=== PATIENT | male | born 1945 | race Caucasian/White ===

== ENCOUNTER 2018-04-18 10:12 | Day surgery (SDC) | payer MEDICARE, BC ==
[~2018-04-18] VITALS: Ht 188 cm; Wt 106.7 kg
[~2018-04-18 10:12] MED LIST: ACYC200 PO; ACYC400 PO; Aspir 8181 MG PO; CARV6.25 PO; CYCL10 PO; DIPH50 PO; ELIQUIS5 MG PO; LEVO750 PO; LOVA40; Lopressor 25 mg25 MG PT; MULTI VITAMIN1 EACH PO; NEBI10 PO; PSEUDOEPHEDRINE30 MG PO; XARELTO10 MG PO
--- NOTE | 2018-04-18 12:28 | NUR ---
04/18/18 Stephanie8 Andrez Truong PATIENT VSS, TOLERATING PO FLUIDS WELL, DENIES PAIN & N/V AT THIS TIME. DISCHARGE INSTRUCTIONS REVIEWED WITH PATIENT AND HIS GIRLFRIEND, NO QUETIONS. NURSE ASSIST PATIENT TO HIS RIDE HOME.
== END 2018-04-18 12:15 | disposition home or self-care (01) ==
LOC: ORSCSDS 10:12
PROVIDERS: Surgery
PROC: 0DBK8ZX Excision of Ascending Colon, Via Natural or Artificial Opening Endoscopic, Diagnostic (ICD-10-PCS; principal; 2018-04-18 11:30)
DX: K92.1 Melena (principal); D12.2 Benign neoplasm of ascending colon; K57.30 Diverticulosis of large intestine without perforation or abscess without bleeding; I48.91 Unspecified atrial fibrillation; I10 Essential (primary) hypertension; K64.8 Other hemorrhoids; E78.5 Hyperlipidemia, unspecified; E66.9 Obesity, unspecified; Z68.31 Body mass index [BMI] 31.0-31.9, adult; Z79.82 Long term (current) use of aspirin; Z79.899 Other long term (current) drug therapy
CPT/HCPCS: 88305; J7120

== ENCOUNTER 2021-07-04 20:03 | Observation (INO) | payer MEDICARE, BC ==
[~2021-07-04] VITALS: Ht 188 cm; Wt 114.0 kg
[~2021-07-04 20:03] MED LIST changes: +CEPH500 PO; +METO25ER PO
[2021-07-04 20:49] LABS: Albumin, Blood 3.4 g/dL (3.4-5.0); Albumin/Globulin Ratio 0.9 (0.8-1.8); Bilirubin, Total 2.5 mg/dL (0.1-1.0); Bun/Creatinine Ratio 19.5 (12.0-20.0); Calcium, Blood 8.1 mg/dL (8.5-10.1); Creatinine, Blood 0.82 mg/dL (0.60-1.20); Globulin, Blood 3.7 g/dL (2.2-4.0); Magnesium, Blood 1.9 mg/dL (1.6-2.4); Potassium, Blood 3.7 mmol/L (3.5-5.5); Total Protein, Blood 7.1 g/dL (6.4-8.2)
[2021-07-04 21:03] LABS: Hemoglobin 8.6 g/dL (13.5-17.5); Mean Corpuscular HGB 34.4 pg (26.0-34.0); Mean Corpuscular HGB Conc 35.8 g/dL (31.5-36.5); Mean Corpuscular Volume 96 fL (80-100); Mean Platelet Volume 9.5 fL (9.1-12.4); NRBC ABSOLUTE 0.07 K/mm3 (0.00-0.02); NRBC Auto 0.5 /100 WBC (0.0-0.2); Platelet Count 427 K/mm3 (150-400); RDW Coefficient Variation 19.6 % (11.7-14.2); RDW Standard Deviation 55.8 fL (35.1-46.3); White Blood Cell Count 14.87 K/mm3 (4.00-11.30)
[2021-07-04 21:34] LABS: BAND PERCENT MAN 1 % (0-8); BASOPHILS ABSOLUTE MAN 0.14 K/mm3 (0.00-0.23); BASOPHILS PERCENT MAN 1 % (0-2); EOSINOPHILS ABSOLUTE MAN 2.97 K/mm3 (0.00-0.68); EOSINOPHILS PERCENT MAN 20 % (0-6); LYMPHOCYTES ABSOLUTE MAN 3.27 K/mm3 (0.84-5.20); LYMPHOCYTES PERCENT MAN 22 % (21-46); MONOCYTES ABSOLUTE MAN 2.23 K/mm3 (0.16-1.47); MONOCYTES PERCENT MAN 15 % (4-13); MYELOCYTE ABSOLUTE MAN 0.14 K/mm3 (0.00-0.00); MYELOCYTE PERCENT MAN 1 % (0-0); NEUTROPHILS ABSOLUTE MAN 6.09 K/mm3 (1.96-9.15); SEG NEUTROPHILS PERCENT MAN 40 % (41-73); TOTAL CELLS COUNTED 100
[2021-07-04] MEDS ORDERED: METO50ER PO (22:14)
[2021-07-04] MEDS ORDERED: ACYCLOVIR400 MG PO (22:15)
[2021-07-04] MEDS ORDERED: HYDCHL25 PO (22:15)
[2021-07-04] MEDS ORDERED: VITAMIN B-122000 MC1 PO (22:16)
[2021-07-04] MEDS ORDERED: C COMPLEX1000 M1 PO (22:16)
[2021-07-04 23:08] LABS: Source, Urine Clean Catch
[2021-07-04 23:19] LABS: Bilirubin, Urine Neg (Neg); Blood, Urine Neg (Neg); Glucose Qualitative, Urine Neg (Neg); Ketones, Urine Neg (Neg); Leukocyte Esterase, Urine Neg (Neg); Nitrite, Urine Neg (Neg); Protein, Urine Neg (Neg); Urobilinogen, Urine 1+ (Normal)
[2021-07-04 23:21] LABS: Appearance, Urine Clear (Clear); Color, Urine Yellow (P-Yellow)
--- NOTE | 2021-07-04 23:30 | NUR ---
ADMISSION REPORT RECIEVED FROM ER NURSE. PATIENT BROUGHT TO PCU 6 AND SLID OVER TO PCU BED WITH ASSISTANCE OF STAFF. ALERT AND ORIENTED, ANSWERING ALL QUESTIONS APROPRIATELY. CARDIZEM GTT INFUSING PER EMAR. TELE READING AFIB 130s, ALL OTHER VITALS STABLE. PATIENT ON RA WITH O2 SAT >90%. PATIENT DENIES CHEST PAIN OR PRESSURE AT THIS TIME. RN AT BEDSIDE ATTEMPTING 2ND IV SITE. PATIENT ORIENTED TO ROOM AND CALL LIGHT SYSTEM. BED IN LOW POSITION.
[2021-07-04 23:34] LABS: Hematocrit 21.4 % (37.0-53.0)
[2021-07-04 23:48] LABS: Hemoglobin 8.2 g/dL (13.5-17.5)
--- NOTE | 2021-07-05 01:30 | NUR ---
UPDATE CALL PLACED TO HOSPITALIST TO CLARIFY ORDERS. PATIENT CONVERTED TO SINUS RHYTHM AT 0037. PER HOSPITALIST, CONTINUE CARDIZEM GTT FOR 2 HOURS AND GIVE PO METOPROLOL. IV POTASSIUM SWITCHED TO PO. SEE UPDATED ORDERS/EMAR.
--- NOTE | 2021-07-05 05:45 | NUR ---
SHIFT SUMMARY PATIENT ALERT AND ORIENTED x4, PLEASANT AND COOPERATIVE WITH CARE. ABLE TO MAKE NEEDS KNOWN TO STAFF, USES CALL LIGHT APPROPRIATELY. VSS. PATIENT CONVERTED TO SR AT 36, CARDIZEM GTT ON STANDBY SINCE 324, SEE PREVIOUS NOTES. PATIENT DENIES CHEST PAIN OR SOB SINCE ADMISSION. MEDICATED PER EMAR FOR HEADACHE/NAUSEA. USING URINAL AT BEDSIDE INDEPENDENTLY. NO SIGNIFICANT CHANGES SINCE PREVIOUS NOTES. WILL REPORT TO DAY SHIFT RN.
[2021-07-05 06:08] LABS: Albumin, Blood 3.2 g/dL (3.4-5.0); Albumin/Globulin Ratio 0.9 (0.8-1.8); Bilirubin, Total 2.1 mg/dL (0.1-1.0); Bun/Creatinine Ratio 21.8 (12.0-20.0); Calcium, Blood 8.1 mg/dL (8.5-10.1); Creatinine, Blood 0.73 mg/dL (0.60-1.20); Globulin, Blood 3.4 g/dL (2.2-4.0); Potassium, Blood 4.2 mmol/L (3.5-5.5); Total Protein, Blood 6.6 g/dL (6.4-8.2)
[2021-07-05 06:30] LABS: BASOPHILS ABSOLUTE AUTO 0.16 K/mm3 (0.00-0.23); BASOPHILS PERCENT AUTO 1 % (0-2); EOSINOPHILS ABSOLUTE AUTO 2.08 K/mm3 (0.00-0.68); EOSINOPHILS PERCENT AUTO 16 % (0-6); Hematocrit 20.5 % (37.0-53.0); Hemoglobin 7.4 g/dL (13.5-17.5); IMMATURE GRAN ABSOLUTE AUTO 0.14 K/mm3 (0.00-0.10); IMMATURE GRAN PERCENT AUTO 1 % (0-1); LYMPHOCYTES ABSOLUTE AUTO 3.45 K/mm3 (0.84-5.20); LYMPHOCYTES PERCENT AUTO 27 % (21-46); MONOCYTES ABSOLUTE AUTO 1.42 K/mm3 (0.16-1.47); MONOCYTES PERCENT AUTO 11 % (4-13); Mean Corpuscular HGB 35.4 pg (26.0-34.0); Mean Corpuscular HGB Conc 36.1 g/dL (31.5-36.5); Mean Corpuscular Volume 98 fL (80-100); Mean Platelet Volume 9.4 fL (9.1-12.4); NEUTROPHILS ABSOLUTE AUTO 5.53 K/mm3 (1.96-9.15); NEUTROPHILS PERCENT AUTO 43 % (41-73); NRBC ABSOLUTE 0.06 K/mm3 (0.00-0.02); NRBC Auto 0.5 /100 WBC (0.0-0.2); Platelet Count 352 K/mm3 (150-400); RDW Coefficient Variation 21.4 % (11.7-14.2); Red Blood Cell Count 2.09 M/mm3 (4.30-5.90); White Blood Cell Count 12.78 K/mm3 (4.00-11.30)
[2021-07-05] MEDS ORDERED: DECADRON6 M1 PO (12:06)
[2021-07-05 12:25] LABS: Hematocrit 20.9 % (37.0-53.0); Hemoglobin 7.8 g/dL (13.5-17.5)
--- NOTE | 2021-07-05 13:10 | NUR ---
DISCHARGE NOTE PT REMAINED ALERT AND ORIENTED X 4, VITAL SIGNS STABLE UPON DISCHARGE. THIS NURSE WENT OVER DISCHARGE INSTRUCTIONS INCLUDING THE NEED TO MAKE FOLLOW UP APPOINTMENT WITH DR. FOWLER, NEW MEDICATION INSTRUCTIONS, AND EDUCATION REGARDING DIAGNOSIS, PT SIGNIFICANT OTHER SRAVANTHISANJUANA WAS ALSO IN ROOM DURING DISCHARGE. PT LEFT PCU WITH ALL OF PT BELONGINGS AT APPROX. 1258 VIA WHEELCHAIR AND WAS ESCORTED BY THIS NURSE. HE WAS PICKED UP BY YESIKA AT ER ENTRANCE. PT WAS STABLE. IV IN BOTH LEFT AND RIGHT AC REMOVED BY THIS NURSE.
== END 2021-07-05 13:00 | disposition home or self-care (01) ==
LOC: ER 20:03 → PCU 20:04
PROVIDERS: Emergency Medicine; ADMIT Internal Medicine
DX: I48.91 Unspecified atrial fibrillation (principal); I10 Essential (primary) hypertension; E78.5 Hyperlipidemia, unspecified; Z88.1 Allergy status to other antibiotic agents; Z88.8 Allergy status to other drugs, medicaments and biological substances; E87.6 Hypokalemia; D64.9 Anemia, unspecified; D59.9 Acquired hemolytic anemia, unspecified; R00.0 Tachycardia, unspecified; I49.1 Atrial premature depolarization; I47.1 Supraventricular tachycardia
CPT/HCPCS: 36415; 71045; 80053; 81003; 83735; 83880; 84484; 85014; 85018; 85025; 93005; 93010; 93306; 94760; 96365; 96376; 97116; 97161; 97530; 99285-25; A9270; J0456; J1650; J2405; J7040; J7050

== ENCOUNTER 2023-11-24 12:35 | Day surgery (SDC) | payer MEDICARE, BC ==
[~2023-11-24] VITALS: Ht 188 cm; Wt 110.8 kg
[~2023-11-24 12:35] MED LIST changes: +ACYCLOVIR400 MG PO; +C COMPLEX1000 M1 PO; +CATAPRES0.1 MG PO; +DECADRON6 M1 PO; +HYDCHL25 PO; +Lactated Ringer's 1,000 ML IV ONE; +Lexapro5 MG PO; +METO50ER PO; +VITAMIN B-122000 MC1 PO
[2023-11-24] MEDS ORDERED: BENADRYL25 MG (12:52)
[2023-11-24] MEDS ORDERED: ERGO50000 (12:52)
[2023-11-24] MEDS ORDERED: Lactated Ringer's 1,000 ML IV ONE (13:16)
[2023-11-24] MEDS ORDERED: propofoL 50 ML IV ONE (13:53)
[2023-11-24 14:47] VITALS: BP 139/89
== END 2023-11-24 15:00 | disposition home or self-care (01) ==
LOC: ORSCSDS 12:35
PROVIDERS: Surgery
PROC: 0DBH8ZX Excision of Cecum, Via Natural or Artificial Opening Endoscopic, Diagnostic (ICD-10-PCS; principal; 2023-11-24 14:15)
PROC: 0DBM8ZX Excision of Descending Colon, Via Natural or Artificial Opening Endoscopic, Diagnostic (ICD-10-PCS; principal; 2023-11-24 14:15)
PROC: 0DBN8ZX Excision of Sigmoid Colon, Via Natural or Artificial Opening Endoscopic, Diagnostic (ICD-10-PCS; principal; 2023-11-24 14:15)
PROC: 0DBK8ZX Excision of Ascending Colon, Via Natural or Artificial Opening Endoscopic, Diagnostic (ICD-10-PCS; principal; 2023-11-24 14:15)
DX: Z12.11 Encounter for screening for malignant neoplasm of colon (principal); Z86.0100 Personal history of colon polyps, unspecified; K57.30 Diverticulosis of large intestine without perforation or abscess without bleeding; K64.8 Other hemorrhoids; D12.0 Benign neoplasm of cecum; D12.2 Benign neoplasm of ascending colon; D12.5 Benign neoplasm of sigmoid colon; K63.5 Polyp of colon; I10 Essential (primary) hypertension; I48.91 Unspecified atrial fibrillation; E78.5 Hyperlipidemia, unspecified; Z86.73 Personal history of transient ischemic attack (TIA), and cerebral infarction without residual deficits; Z79.899 Other long term (current) drug therapy; Z79.82 Long term (current) use of aspirin
CPT/HCPCS: 88305; J2704; J7120

== ENCOUNTER 2023-12-06 08:35 | Emergency (ER) | payer MEDICARE, BC ==
[~2023-12-06] VITALS: Ht 188 cm; Wt 109.8 kg
[~2023-12-06 08:35] MED LIST changes: +BENADRYL25 MG; +ERGO50000; -Lactated Ringer's 1,000 ML IV ONE
[2023-12-06] MEDS ORDERED: Ketorolac Tromethamine 15mg Vial IV ONE (09:55)
[2023-12-06 10:52] LABS: BASOPHILS ABSOLUTE AUTO 0.09 K/mm3 (0.00-0.23); BASOPHILS PERCENT AUTO 1 % (0-2); EOSINOPHILS ABSOLUTE AUTO 0.01 K/mm3 (0.00-0.68); EOSINOPHILS PERCENT AUTO 0 % (0-6); Hematocrit 38.5 % (37.0-53.0); IMMATURE GRAN ABSOLUTE AUTO 0.02 K/mm3 (0.00-0.10); IMMATURE GRAN PERCENT AUTO 0 % (0-1); LYMPHOCYTES ABSOLUTE AUTO 0.93 K/mm3 (0.84-5.20); LYMPHOCYTES PERCENT AUTO 9 % (21-46); MONOCYTES ABSOLUTE AUTO 0.99 K/mm3 (0.16-1.47); MONOCYTES PERCENT AUTO 10 % (4-13); Mean Corpuscular HGB 30.9 pg (26.0-34.0); Mean Corpuscular HGB Conc 33.8 g/dL (31.5-36.5); Mean Corpuscular Volume 91 fL (80-100); Mean Platelet Volume 9.4 fL (9.1-12.4); NEUTROPHILS ABSOLUTE AUTO 8.31 K/mm3 (1.96-9.15); NEUTROPHILS PERCENT AUTO 80 % (41-73); Platelet Count 268 K/mm3 (150-400); RDW Coefficient Variation 13.9 % (11.7-14.2); RDW Standard Deviation 47.2 fL (35.1-46.3); Red Blood Cell Count 4.21 M/mm3 (4.30-5.90); White Blood Cell Count 10.35 K/mm3 (4.00-11.30)
[2023-12-06 11:15] LABS: Albumin, Blood 3.8 g/dL (3.4-5.0); Albumin/Globulin Ratio 1.2 (0.8-1.8); Bilirubin, Total 0.5 mg/dL (0.1-1.0); Bun/Creatinine Ratio 17.9 (12.0-20.0); Calcium, Blood 8.6 mg/dL (8.5-10.1); Creatinine, Blood 1.06 mg/dL (0.60-1.20); Globulin, Blood 3.1 g/dL (2.2-4.0); Potassium, Blood 4.3 mmol/L (3.5-5.5); Total Protein, Blood 6.9 g/dL (6.4-8.2)
[2023-12-06 11:39] LABS: Source, Urine Clean Catch
[2023-12-06 11:45] LABS: Bilirubin, Urine Neg (Neg); Blood, Urine 4+ (Neg); Glucose Qualitative, Urine Neg (Neg); Ketones, Urine Neg (Neg); Leukocyte Esterase, Urine Neg (Neg); Nitrite, Urine Neg (Neg); Protein, Urine 1+ (Neg); Urobilinogen, Urine NORM (Normal)
[2023-12-06 11:56] LABS: Appearance, Urine Hazy (Clear); Bacteria Not Seen /hpf; Color, Urine Yellow (P-Yellow); Squamous Epithelial Cells Few /hpf (Few); White Blood Cells, Urine Not Seen /hpf (0-5)
[2023-12-06 12:00] VITALS: BP 157/85
[2023-12-06] MEDS ORDERED: Ondansetron HCl 2 MG / ML 2ML Vial IV ONE (12:15)
[2023-12-06] MEDS ORDERED: ONDA4ODT MM (13:02)
[2023-12-06] MEDS ORDERED: IBUP600 PO (13:02)
== END 2023-12-06 13:04 | disposition home or self-care (01) ==
LOC: ER 08:35
PROVIDERS: Physician Assistant
DX: N13.2 Hydronephrosis with renal and ureteral calculous obstruction (principal); I48.91 Unspecified atrial fibrillation; I10 Essential (primary) hypertension; E78.5 Hyperlipidemia, unspecified; Z86.73 Personal history of transient ischemic attack (TIA), and cerebral infarction without residual deficits; Z87.442 Personal history of urinary calculi; Z88.1 Allergy status to other antibiotic agents; Z91.041 Radiographic dye allergy status; Z88.8 Allergy status to other drugs, medicaments and biological substances; Z79.82 Long term (current) use of aspirin; Z79.899 Other long term (current) drug therapy
CPT/HCPCS: 74176; 80053; 81001; 83690; 85025; 96374; 96375; 99284-25; J1885; J2405